=== PATIENT | female | born 1970 | race Caucasian/White ===

== ENCOUNTER 2017-01-20 10:21 | Emergency (ER) | payer BC ==
[~2017-01-20] VITALS: Ht 152.4 cm; Wt 100.0 kg
[2017-01-20] MEDS ORDERED: IPRATROPIUM BROMIDE (0.02%) 0.5MG/2.5ML NEB HHN STA (10:58)
[2017-01-20] MEDS ORDERED: ALBUTEROL (0.083%) 2.5MG/3ML NEB HHN STA (10:58)
[2017-01-20 15:10] VITALS: BP 120/72
== END 2017-01-20 16:01 | disposition home or self-care (01) ==
LOC: ER 12:16
DX: J40 Bronchitis, not specified as acute or chronic (principal); Z90.49 Acquired absence of other specified parts of digestive tract; Z88.4 Allergy status to anesthetic agent
CPT/HCPCS: 71020; 81025; 94640; 99284; J7611

== ENCOUNTER → 2018-01-22 | Outpatient (CLI) | payer BC | END | disposition home or self-care (01) | LOC: US 09:45 | PROVIDERS: ATTEND Internal Medicine | DX: K76.0 Fatty (change of) liver, not elsewhere classified (principal); Z90.49 Acquired absence of other specified parts of digestive tract | CPT/HCPCS: 76700 ==

== ENCOUNTER → 2018-03-19 | Outpatient (CLI) | payer BC ==
[2018-03-19 11:33] LABS: BASOPHILS % 0.9 % (0.0-2.0); EOSINOPHILS % 3.1 % (0.0-5.0); HEMATOCRIT. 40.8 % (36.0-48.0); HEMOGLOBIN. 13.9 g/dL (12.0-16.0); LYMPHOCYTES % 32.8 % (20.0-50.0); MEAN CORPUSCULAR HEMOGLOBIN 32.8 pg (28.0-32.0); MEAN CORPUSCULAR VOLUME 96.2 fL (81.0-99.0); MEAN PLATELET VOLUME 8.3 fl (7.4-10.4); MONOCYTES % 8.3 % (2.0-8.0); NEUTROPHILS % 54.9 % (40.0-76.0); PLATELET 237 x1000/uL (130-400); RED BLOOD CELL COUNT 4.25 mill/uL (4.2-5.4); RED CELL DISTRIBUTION WIDTH 13.9 % (11.6-14.6)
[2018-03-19 12:06] LABS: CHLORIDE 105 mEq/L (98-107)
[2018-03-19 12:24] LABS: T4 FREE 1.03 ng/dL (0.76-1.46)
== END | disposition home or self-care (01) ==
LOC: LAB 10:59
PROVIDERS: ATTEND Internal Medicine
DX: Z13.0 Encounter for screening for diseases of the blood and blood-forming organs and certain disorders involving the immune mechanism (principal); E11.9 Type 2 diabetes mellitus without complications; E66.9 Obesity, unspecified
CPT/HCPCS: 36415; 80076; 83036; 84439; 84443; 84481

== ENCOUNTER 2018-03-26 23:48 | Emergency (ER) | payer BC ==
[~2018-03-26] VITALS: Ht 142.2 cm; Wt 92.0 kg
[2018-03-27 01:20] LABS: CLARITY URINE CLEAR (CLEAR); COLOR URINE YELLOW (YELLOW); KETONES URINE 1+ (NEGATIVE); LEUKOCYTE ESTERASE URINE NEGATIVE (NEGATIVE); NITRITE URINE NEGATIVE (NEGATIVE); OCCULT BLOOD URINE NEGATIVE (NEGATIVE); PROTEIN URINE NEGATIVE (NEGATIVE); SPECIFIC GRAVITY URINE 1.008 (1.005-1.030); UROBILINOGEN URINE 0.2 E.U./dL (0.2-1.0)
[2018-03-27 03:45] LABS: BASOPHILS % 0.7 % (0.0-2.0); EOSINOPHILS % 1.2 % (0.0-5.0); HEMATOCRIT. 37.1 % (36.0-48.0); LYMPHOCYTES % 27.8 % (20.0-50.0); MEAN CORPUSCULAR HEMOGLOBIN 33.3 pg (28.0-32.0); MEAN CORPUSCULAR VOLUME 95.1 fL (81.0-99.0); MEAN PLATELET VOLUME 8.2 fl (7.4-10.4); MONOCYTES % 7.7 % (2.0-8.0); NEUTROPHILS % 62.6 % (40.0-76.0); PLATELET 220 x1000/uL (130-400); RED CELL DISTRIBUTION WIDTH 13.9 % (11.6-14.6)
[2018-03-27 03:54] LABS: CHLORIDE 108 mEq/L (98-107)
[2018-03-27 05:16] VITALS: BP 100/63
== END 2018-03-27 05:21 | disposition home or self-care (01) ==
LOC: ER 23:48
DX: K57.90 Diverticulosis of intestine, part unspecified, without perforation or abscess without bleeding (principal); Z88.8 Allergy status to other drugs, medicaments and biological substances
CPT/HCPCS: 36415; 74176; 81025; 99285

== ENCOUNTER 2018-04-23 06:41 | Emergency (ER) | payer BC ==
[~2018-04-23] VITALS: Ht 142.2 cm; Wt 92.0 kg
[2018-04-23] MEDS ORDERED: ASPIRIN 81MG TABLET PO ONE (08:00)
[2018-04-23 08:37] LABS: BASOPHILS % 0.5 % (0.0-2.0); CHLORIDE 105 mEq/L (98-107); EOSINOPHILS % 1.3 % (0.0-5.0); HEMATOCRIT. 39.7 % (36.0-48.0); HEMOGLOBIN. 13.7 g/dL (12.0-16.0); LYMPHOCYTES % 19.3 % (20.0-50.0); MEAN CORPUSCULAR HEMOGLOBIN 33.5 pg (28.0-32.0); MEAN CORPUSCULAR VOLUME 96.7 fL (81.0-99.0); MEAN PLATELET VOLUME 8.5 fl (7.4-10.4); MONOCYTES % 8.6 % (2.0-8.0); NEUTROPHILS % 70.3 % (40.0-76.0); PLATELET 242 x1000/uL (130-400); RED CELL DISTRIBUTION WIDTH 13.9 % (11.6-14.6)
[2018-04-23 08:44] LABS: CLARITY URINE CLEAR (CLEAR); COLOR URINE YELLOW (YELLOW); KETONES URINE 1+ (NEGATIVE); LEUKOCYTE ESTERASE URINE NEGATIVE (NEGATIVE); NITRITE URINE NEGATIVE (NEGATIVE); OCCULT BLOOD URINE NEGATIVE (NEGATIVE); PROTEIN URINE NEGATIVE (NEGATIVE); SPECIFIC GRAVITY URINE 1.016 (1.005-1.030); UROBILINOGEN URINE 0.2 E.U./dL (0.2-1.0)
[2018-04-23 10:30] VITALS: BP 97/54
== END 2018-04-23 10:50 | disposition left against medical advice (07) ==
LOC: ER 06:41
DX: M54.6 Pain in thoracic spine (principal); R09.89 Other specified symptoms and signs involving the circulatory and respiratory systems; M79.652 Pain in left thigh; Z88.8 Allergy status to other drugs, medicaments and biological substances; Z98.890 Other specified postprocedural states
CPT/HCPCS: 36415; 71045; 81025; 83880; 84484; 93005; 93971; 99284

== ENCOUNTER → 2019-01-31 | Outpatient (CLI) | payer BC ==
[2019-01-31 09:46] LABS: BASOPHILS % 0.5 % (0.0-2.0); EOSINOPHILS % 3.3 % (0.0-5.0); HEMATOCRIT. 39.2 % (36.0-48.0); HEMOGLOBIN. 13.4 g/dL (12.0-16.0); LYMPHOCYTES % 36.4 % (20.0-50.0); MEAN CORPUSCULAR HEMOGLOBIN 32.5 pg (28.0-32.0); MEAN CORPUSCULAR VOLUME 95.1 fL (81.0-99.0); MONOCYTES % 12.7 % (2.0-8.0); NEUTROPHILS % 47.1 % (40.0-76.0); PLATELET 205 x1000/uL (130-400); RED BLOOD CELL COUNT 4.13 mill/uL (4.2-5.4); RED CELL DISTRIBUTION WIDTH 14.2 % (11.6-14.6)
[2019-01-31 09:56] LABS: CHLORIDE 110 mEq/L (98-107)
[2019-01-31 10:02] LABS: LDL CHOLESTEROL 113 mg/dL (5-100)
[2019-01-31 10:03] LABS: HDL CHOLESTEROL 37 mg/dL (40-59)
== END | disposition home or self-care (01) ==
LOC: LAB 08:58
PROVIDERS: ATTEND Internal Medicine
DX: Z13.220 Encounter for screening for lipoid disorders (principal); Z13.29 Encounter for screening for other suspected endocrine disorder; Z13.0 Encounter for screening for diseases of the blood and blood-forming organs and certain disorders involving the immune mechanism
CPT/HCPCS: 36415; 80061; 83036; 84443

== ENCOUNTER → 2020-07-03 | Outpatient (CLI) | payer BC ==
[2020-07-03 09:30] LABS: BASOPHILS % 0.9 % (0.0-2.0); EOSINOPHILS % 2.1 % (0.0-5.0); HEMATOCRIT. 39.7 % (36.0-48.0); HEMOGLOBIN. 13.5 g/dL (12.0-16.0); LYMPHOCYTES % 32.4 % (20.0-50.0); MEAN CORPUSCULAR HEMOGLOBIN 32.2 pg (28.0-32.0); MEAN CORPUSCULAR VOLUME 94.8 fL (81.0-99.0); MEAN PLATELET VOLUME 8.9 fl (7.4-10.4); MONOCYTES % 7.9 % (2.0-8.0); NEUTROPHILS % 56.7 % (40.0-76.0); PLATELET 190 x1000/uL (130-400); RED BLOOD CELL COUNT 4.19 mill/uL (4.2-5.4); RED CELL DISTRIBUTION WIDTH 13.8 % (11.6-14.6)
[2020-07-03 09:51] LABS: CHLORIDE 106 mEq/L (98-107)
[2020-07-03 09:58] LABS: LDL CHOLESTEROL 124 mg/dL (5-100)
[2020-07-03 09:59] LABS: HDL CHOLESTEROL 42 mg/dL (40-59)
[2020-07-03 10:00] LABS: T4 FREE 1.11 ng/dL (0.76-1.46)
== END | disposition home or self-care (01) ==
LOC: LAB 08:58
PROVIDERS: ATTEND Internal Medicine
DX: Z00.00 Encounter for general adult medical examination without abnormal findings (principal); N39.0 Urinary tract infection, site not specified; Z13.220 Encounter for screening for lipoid disorders; Z13.0 Encounter for screening for diseases of the blood and blood-forming organs and certain disorders involving the immune mechanism; Z13.1 Encounter for screening for diabetes mellitus
CPT/HCPCS: 36415; 80053; 80061; 83036; 84439; 84443; 85025

== ENCOUNTER → 2020-07-10 | Outpatient (CLI) | payer BC | END | disposition home or self-care (01) | LOC: LAB 11:02 | PROVIDERS: ATTEND Internal Medicine | DX: Z20.822 Contact with and (suspected) exposure to COVID-19 (principal) | CPT/HCPCS: 87426 ==

== ENCOUNTER → 2020-07-11 | Outpatient (CLI) | payer BC | END | disposition home or self-care (01) | LOC: MAMMO 13:50 | PROVIDERS: ATTEND Internal Medicine | DX: Z12.31 Encounter for screening mammogram for malignant neoplasm of breast (principal) | CPT/HCPCS: 77067 ==

== ENCOUNTER → 2021-06-03 | Outpatient (CLI) | payer BC ==
[2021-06-03 11:57] LABS: BASOPHILS % 0.5 % (0.0-2.0); EOSINOPHILS % 3.4 % (0.0-5.0); HEMATOCRIT. 41.1 % (36.0-48.0); HEMOGLOBIN. 13.5 g/dL (12.0-16.0); LYMPHOCYTES % 34.3 % (20.0-50.0); MEAN CORPUSCULAR VOLUME 94.6 fL (81.0-99.0); MEAN PLATELET VOLUME 7.9 fl (7.4-10.4); MONOCYTES % 7.4 % (2.0-8.0); NEUTROPHILS % 54.4 % (40.0-76.0); PLATELET 245 x1000/uL (130-400); RED BLOOD CELL COUNT 4.35 mill/uL (4.2-5.4)
[2021-06-03 12:06] LABS: CHLORIDE 108 mEq/L (98-107)
[2021-06-03 12:14] LABS: LDL CHOLESTEROL 97 mg/dL (5-100)
[2021-06-03 12:15] LABS: HDL CHOLESTEROL 48 mg/dL (40-59)
== END | disposition home or self-care (01) ==
LOC: RAD 11:29
PROVIDERS: ATTEND Internal Medicine
DX: E11.9 Type 2 diabetes mellitus without complications (principal); R07.9 Chest pain, unspecified; E78.5 Hyperlipidemia, unspecified; M25.50 Pain in unspecified joint
CPT/HCPCS: 36415; 71046; 80053; 80061; 83036; 84550; 85025; 85651; 86038; 86430

== ENCOUNTER 2021-08-17 14:51 | Emergency (ER) | payer BC ==
[~2021-08-17] VITALS: Ht 157.5 cm; Wt 90.0 kg
[2021-08-17 16:30] VITALS: BP 121/65
[2021-08-17] MEDS ORDERED: IBUPROFEN 400MG TABLET PO ONE (16:30)
[2021-08-17] MEDS ORDERED: IBUP-2028 MT (17:24)
== END 2021-08-17 17:36 | disposition home or self-care (01) ==
LOC: ER 15:18
DX: M79.671 Pain in right foot (principal); E11.9 Type 2 diabetes mellitus without complications; J40 Bronchitis, not specified as acute or chronic; Z88.8 Allergy status to other drugs, medicaments and biological substances; Z68.36 Body mass index [BMI] 36.0-36.9, adult; Z98.890 Other specified postprocedural states
CPT/HCPCS: 73600; 73620; 82962; 99284

== ENCOUNTER → 2021-08-23 | Outpatient (CLI) | payer BC ==
[~2021-08-23] MED LIST: IBUP-2028 MT
[2021-08-23 11:09] LABS: BASOPHILS % 0.8 % (0.0-2.0); HEMATOCRIT. 38.6 % (36.0-48.0); HEMOGLOBIN. 13.4 g/dL (12.0-16.0); LYMPHOCYTES % 38.3 % (20.0-50.0); MEAN CORPUSCULAR HEMOGLOBIN 32.1 pg (28.0-32.0); MEAN CORPUSCULAR VOLUME 92.7 fL (81.0-99.0); MEAN PLATELET VOLUME 8.3 fl (7.4-10.4); MONOCYTES % 8.7 % (2.0-8.0); NEUTROPHILS % 49.2 % (40.0-76.0); PLATELET 232 x1000/uL (130-400); RED BLOOD CELL COUNT 4.17 mill/uL (4.2-5.4); RED CELL DISTRIBUTION WIDTH 13.7 % (11.6-14.6)
[2021-08-23 11:12] LABS: CHLORIDE 108 mEq/L (98-107)
[2021-08-23 11:18] LABS: C REACTIVE PROTEIN QUANT 5.7 mg/L (0.0-3.0)
== END | disposition home or self-care (01) ==
LOC: LAB 10:37
PROVIDERS: ATTEND Internal Medicine
DX: Z13.1 Encounter for screening for diabetes mellitus (principal); E11.40 Type 2 diabetes mellitus with diabetic neuropathy, unspecified; Z13.0 Encounter for screening for diseases of the blood and blood-forming organs and certain disorders involving the immune mechanism; Z00.00 Encounter for general adult medical examination without abnormal findings
CPT/HCPCS: 36415; 80053; 83036; 85025; 85651; 86140

== ENCOUNTER → 2021-10-24 | Outpatient (CLI) | payer BC | END | disposition home or self-care (01) | LOC: US 08:47 | PROVIDERS: ATTEND Internal Medicine | DX: M79.604 Pain in right leg (principal); Z86.718 Personal history of other venous thrombosis and embolism | CPT/HCPCS: 93970 ==